=== PATIENT | male | born 1975 | race Caucasian/White ===

== ENCOUNTER 2017-11-29 09:53 | Emergency (ER) | payer SELFPAY ==
[2017-11-29] MEDS ORDERED: Sodium Chloride 0.9% 10 ML Syringe FLUSH PRN ×2 (10:23→11:46)
[2017-11-29] MEDS ORDERED: LORazepam 2 MG/ML MDV IVPUSH ONE (10:24)
[2017-11-29] MEDS ORDERED: Glucagon,Human Recombinant 1 MG Vial IVPUSH ONE (10:24)
[2017-11-29] MEDS ORDERED: Lactated Ringers 1,000 ML IV SCH (10:30)
--- NOTE | 2017-11-29 11:07 | EDM.PDOC ---
ED HPI GENERAL MEDICAL PROBLEM - General Chief Complaint: Gastrointestinal Problem Stated Complaint: TROUBLE SWALLOWING Time Seen by Provider: 11/29/17 10:19 Source of Information: Reports: Patient History Limitations: Reports: No Limitations - History of Present Illness INITIAL COMMENTS - FREE TEXT/NARRATIVE: The patient presents to the ER because he cannot swallow. He says about 11: 30pm last night he ate some chicken and it would not go down. He was able to get most of it up but now he cannot swallow anything. He cannot even swallow his saliva. He says for the past month he has been having trouble swallowing things. He will choke and usually will get it up. He has no chest pain or shortness of breath. Onset: Sudden Duration: Day(s): (Last night) Severity: Moderate Improves with: Reports: None Worsens with: Reports: None Associated Symptoms: Reports: No Other Symptoms - Related Data Allergies Allergy/AdvReac Type Severity Reaction Status Date / Time No Known Allergies Allergy Verified 11/29/17 09:57 Home Meds: Home Meds . [No Known Home Meds] 11/29/17 [History] Past Medical History - Past Health History Medical/Surgical History: Denies Medical/Surgical History Social & Family History - Tobacco Use Smoking Status *Q: Never Smoker ED ROS GENERAL - Review of Systems Review Of Systems: See Below Constitutional: Reports: No Symptoms HEENT: Reports: Other (Food bolus stuck in esophagus) Respiratory: Reports: No Symptoms Cardiovascular: Reports: No Symptoms Endocrine: Reports: No Symptoms GI/Abdominal: Reports: Other (Food bolus stuck in the esophagus) : Reports: No Symptoms Musculoskeletal: Reports: No Symptoms ED EXAM, GI/ABD - Physical Exam Exam: See Below Exam Limited By: No Limitations General Appearance: Alert, No Apparent Distress Ears: Normal External Exam Nose: Normal Inspection Throat/Mouth: Normal Inspection Head: Atraumatic, Normocephalic Neck: Normal Inspection Respiratory/Chest: No Respiratory Distress, Lungs Clear, Normal Breath Sounds Cardiovascular: Regular Rate, Rhythm, No Edema, No Murmur GI/Abdominal Exam: Soft, Non-Tender, No Organomegaly, No Mass Back Exam: Normal Inspection Extremities: Normal Inspection Course - Vital Signs Last Recorded V/S: Last Vital Signs Temp 97.4 F 11/29/17 09:57 Pulse 67 11/29/17 09:57 Resp BP 156/103 H 11/29/17 09:57 Pulse Ox 98 11/29/17 09:57 - Orders/Labs/Meds Orders: Active Orders 24 hr Category Date Time Status Peripheral IV Care [RC] . DIRECTED Care 11/29/17 10:24 Active Lactated Ringers [Ringers, Lactated] 1,000 ml Med 11/29/17 10:30 Active IV ASDIRECTED Sodium Chloride 0.9% [Saline Flush] Med 11/29/17 10:23 Active 10 ml FLUSH ASDIRECTED PRN Peripheral IV Insertion Adult [OM.PC] Routine Oth 11/29/17 10:23 Ordered Medication Orders Lactated Ringer's (Ringers, Lactated) 1,000 mls @ 150 mls/hr IV ASDIRECTED ALLIE Last Admin: 11/29/17 10:52 Dose: 150 mls/hr Sodium Chloride (Saline Flush) 10 ml FLUSH ASDIRECTED PRN PRN Reason: Keep Vein Open Last Admin: 11/29/17 10:52 Dose: 10 ml Meds: Medications Generic Name Dose Route Start Last Admin Trade Name Freq PRN Reason Stop Dose Admin Lactated Ringer's 1,000 mls @ 150 mls/hr 11/29/17 10:30 11/29/17 10:52 Ringers, Lactated IV 150 mls/hr ASDIRECTED ALLIE Administration Sodium Chloride 10 ml 11/29/17 10:23 11/29/17 10:52 Saline Flush FLUSH 10 ml ASDIRECTED PRN Administration Keep Vein Open Discontinued Medications Generic Name Dose Route Start Last Admin Trade Name Freq PRN Reason Stop Dose Admin Glucagon 1 mg 11/29/17 10:24 11/29/17 10:46 Glucagen IVPUSH 11/29/17 10:25 1 mg ONETIME ONE Administration Lorazepam 1 mg 11/29/17 10:24 11/29/17 10:50 Ativan IVPUSH 11/29/17 10:25 1 mg ONETIME ONE Administration - Re-Assessments/Exams Free Text/Narrative Re-Assessment/Exam: 11/29/17 11:12 I ordered an IV LR at 125mL/hr, glucagon 1mg IV and ativan 1mg IV. He was not able to pass any water. I talked to our general surgeon laborer ammunition [employer] Dr Bee and she will see the patient for EGD. Departure - Departure Time of Disposition: 11:15 Disposition: Home, Self-Care 01 Condition: Good Clinical Impression: Food impaction of esophagus Qualifiers: Encounter type: initial encounter Qualified Code(s): T18.128A - Food in esophagus causing other injury, initial encounter - Discharge Information Referrals: PCP,None [Primary Care Provider] - Forms: ED Department Discharge - My Orders Last 24 Hours: My Active Orders 11/29/17 10:23 Sodium Chloride 0.9% [Saline Flush] 10 ml FLUSH ASDIRECTED PRN Peripheral IV Insertion Adult [OM.PC] Routine 11/29/17 10:24 Peripheral IV Care [RC] . DIRECTED 11/29/17 10:30 Lactated Ringers [Ringers, Lactated] 1,000 ml IV ASDIRECTED - Assessment/Plan Last 24 Hours: My Active Orders 11/29/17 10:23 Sodium Chloride 0.9% [Saline Flush] 10 ml FLUSH ASDIRECTED PRN Peripheral IV Insertion Adult [OM.PC] Routine 11/29/17 10:24 Peripheral IV Care [RC] . DIRECTED 11/29/17 10:30 Lactated Ringers [Ringers, Lactated] 1,000 ml IV ASDIRECTED
[2017-11-29] MEDS ORDERED: Iopamidol 612 MG/ML 150 ML Bottle IVPUSH ONE (11:46)
--- NOTE | 2017-11-29 12:22 | CT ---
CT chest Technique: Multiple axial sections were obtained from above the lung apices inferiorly through the lung bases. Intravenous contrast was utilized. Comparison: No previous chest imaging. Findings: Fluid is identified within the upper esophagus. Wall thickening is seen within the mid and distal esophagus. Wall thickening appears circumferential. Proximal esophagus is dilated. No mediastinal mass or adenopathy is seen. Aorta appears unremarkable. No pericardial thickening is seen. Small portion of the visualized upper abdominal structures are within normal limits. Lungs are clear. No abnormal parenchymal densities are seen. Bone window settings were reviewed which appear within normal limits for the patient's age. Impression: 1. Abnormally esophagus as described above. Endoscopy recommended to further evaluate. 2. No additional abnormality is identified on CT study of the chest. Diagnostic code #9
--- NOTE | 2017-11-29 12:29 | CT ---
CT neck Technique: Multiple axial sections were obtained from above the external auditory canals inferiorly to the lung apices. Intravenous contrast was utilized. Reconstructed sagittal and coronal images were reviewed. Comparison: No previous neck imaging. Findings: Visualized sinuses are clear. Parotid and submandibular salivary glands are unremarkable. No parapharyngeal abnormalities are seen. Dilated proximal esophagus is again seen containing fluid. No adenopathy is seen within the neck. Prevertebral soft tissues are normal. Bone window settings were reviewed which appear within normal limits for the patient's age. Impression: 1. Findings within the esophagus as described on chest CT. 2. CT study of the neck is otherwise unremarkable. Diagnostic code #9
--- NOTE | 2017-12-01 07:55 | CONS ---
CONSULTING PHYSICIAN: Estrellita Bee MD DATE OF CONSULTATION: 11/29/2017 CHIEF COMPLAINT: Inability to swallow. HISTORY OF PRESENT ILLNESS: Mr. Jimmie Becker is a 42-year-old male, who last night was eating a chicken sandwich, when suddenly he got some food stuck. He stated that he got that chicken out, but since that time he just feels that his esophagus is closed off. In fact, he said all night long he could not swallow anything to include his own saliva. He kind of fussed with this, during the evening drinking some hot water, some cold water, but again he could not swallow anything. He denies having any pain. On further history evaluation, the patient really has been plagued by this for about an year. A year ago, he did have actually was more like food, like meat, would stuck, so he started chewing his food better and that seem to improve. However, over the last several months "episodes of something sticking even occurs with small amounts of food and even pieces of bread." He says he then just kind of waits a while then it kind of "opens up." He has some past history of heartburn, but he has never had any signs of biliary reflux. He is not a smoker. He is just an occasional drinker of alcohol. He denies any weight mass and he denies having any change in his usual weight. PAST MEDICAL HISTORY: None. ALLERGIES: None. CURRENT SURGERIES: None. FAMILY HISTORY: His mother and father are alive and well, but his sister just in her 40s of melanoma. He had a grandfather, who smoked heavily and had lung cancer. SOCIAL HISTORY: He is and has no children. 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 REVIEW OF SYSTEMS: HEAD: No history of seizures or strokes. EYES: No history of blurred or double vision. NECK: He denies any neck mass, but he has a difficulty with the swallowing as I described above. CARDIORESPIRATORY: He has no shortness of breath or cough. He denies any chest pain or cardiac arrhythmia. GASTROINTESTINAL: He denies any abdominal pain or tenderness or bloating. No change in his bowel habits. GENITOURINARY: No diarrhea, constipation, or bloody stool. No blood in his urine. EXTREMITIES: He has had no history of DVT or ankle swelling or edema. Denies any problems with bleeding, but he does state he has some joint discomfort. PHYSICAL EXAMINATION: GENERAL: This is a comfortable appearing male. He is sitting upright and is actually spitting. HEENT: His pupils are equal. I was able to have him open up and say his tonsils are intact and I cannot see any gross upper airway lesion. NECK: His neck is without gross mass, although there is a little fullness on the left. There is no subcutaneous air. LUNGS: Lungs are clear bilaterally. CARDIAC: Heart rhythm is regular. ABDOMEN: Totally soft and nontender. EXTREMITIES: Ankles are free of edema. IMPRESSION AND PLAN: Inability to swallow. I am really talking to him and he is very alert. He says, "I do not think there is any foreign body." The fact that this has been progressive over the year. Really, I am concerned about some growth that has occurred, because obviously he is breathing comfortable at this point. I think before any invasive procedure I think CT scan of neck and chest would be most helpful to take a look to see if there is any soft tissue mass that is causing the obstruction of his upper airway, because I do not think it sounds like it is a foreign body. It sounds more that there is some other obstructive process going on. I have already discussed this here with the emergency physician and he concurs. I discussed this with the family and stated that depending on the result would determine which way we would be going. If it shows that there is a foreign then perhaps he will see go to the next step and try to endoscopy to remove it, but if it shows that there is something of a mass effect, that is a different situation and would probably require a higher level of care. He seemed pleased with this and the team has been ordered. KENNETHODAL /[id number]
== END 2017-11-29 13:30 | disposition home or self-care (01) ==
LOC: JD.ED 09:53
DX: T18.128A Food in esophagus causing other injury, initial encounter (principal)
CPT/HCPCS: 70491; 71260; 96361; 96374; 96375; 99285; J1610; J2060; J7050; J7120; Q9967